=== PATIENT | male | born 1950 | race Caucasian/White ===

== ENCOUNTER 2016-05-14 07:17 | Day surgery (SDC) | payer OTHER ==
[~2016-05-14] VITALS: Ht 177.8 cm; Wt 83.5 kg
[~2016-05-14 07:17] MED LIST: 0.9% Sodium Chloride 1,000 ML IV SCH; KEN25CR EXT; LISI10TA PO; NIAC500T21 PO; PRAV40TA PO; PSYL1000 MC; RED30POW MC; SAW/1TAB2 PO; SERT50TA9 PO; Sodium Chloride LOK Flush 10 mL Syringe IV PRN; UBID200C31 PO; VITA1TAB47 PO; fentaNYL-PF 50 mCg/mL 2 mL Inj IVPUSH PRN
[2016-05-14 07:35] VITALS: BP 127/81; PULSE 65; RESP 12; O2SAT 95
[2016-05-14 08:34] VITALS: BP 107/67; PULSE 57; O2SAT 93
[2016-05-14 08:44] VITALS: BP 113/64; PULSE 57; O2SAT 95
[2016-05-14 08:55] VITALS: BP 120/69; PULSE 66; O2SAT 96
--- NOTE | 2016-05-14 09:18 | ENDO ---
[address] [address] ENDOSCOPY PROCEDURE PATIENT: SAGAR LE V : 1950 MR#: [id number] ADMIT: 05/14/2016 JOB ID: [id number] DATE OF SERVICE: 05/14/2016 PRIMARY PROVIDER: Amilcar Murray MD. PROCEDURE: Colonoscopy with cold snare polypectomies. INDICATIONS: A 65-year-old male with a personal history of adenomatous colon polyps, returned for surveillance. EQUIPMENT: [id number]. SEDATION: 1. Versed 3 mg. 2. Fentanyl 75 mcg. COMPLICATIONS: None identified. BOWEL PREPARATION: Fair, adequate exam. PROCEDURE INFORMATION: After the risks and benefits were explained, written and verbal informed consent was obtained. The patient was brought into the endoscopy suite and placed into the left lateral decubitus position. Sedation was achieved using the above-stated medications with the addition of oxygen via nasal cannula. A digital rectal examination was accomplished and no significant pathology appreciated. The scope was introduced into the rectum and advanced to the cecum as identified by the appendiceal orifice and ileocecal valve. The scope was slowly withdrawn to carefully examine the mucosa for any defects or lesions. Multiple direct views were made through the dentate line for exclusion of pathology. The colon was decompressed. The scope removed from the patient who tolerated the procedure well. FINDINGS: There were five polyps seen and removed today by way of cold snare. These ranged in size from 4-6 maybe 7 mm. No other significant pathology was appreciated throughout. There were no apparent hemorrhagic complications. ENDOSCOPIC DIAGNOSIS: Multiple colon polyps. RECOMMENDATIONS: 1. Await histopathology. 2. Repeat colonoscopy in three years' time. The patient would be encouraged to have his computer programmer available for his deep brain stimulator to turn it off in the future in the event that we require cautery.
--- NOTE | 2016-05-15 14:07 | PATH ---
SURGICAL PATHOLOGY Attending Physician:Vicente Zaidi CASE STATUS: Signed Out PATIENT NAME: SAGAR LE V. PID: [id number] : 1950 DATE COLLECTED:05/14/2016 16:21 SPECIMEN: Colon, Biopsy CLINICAL HISTORY: 1).COLON POLYPS X5 FINAL DIAGNOSIS: 1.COLON POLYPS: SESSILE SERRATED ADENOMA INVOLVING TWO BIOPSY FRAGMENTS. TUBULAR ADENOMA INVOLVING MULTIPLE BIOPSY FRAGMENTS. ICD10 CODE D12.6 GROSS DESCRIPTION: The specimen is received in one formalin filled container labeled with the patient's name, sublabeled "colon polyps" and consists of multiple portions of tissue which aggregate to 0.6 x 0.4 x 0.3 CM. The specimens is entirely submitted in one cassette. 05/14/2016 [facility] MICRO DESCRIPTION: See diagnosis. ICD-9 CODES: CPT CODES: 1: 76778 Electronically Signed Out Pradip Davenport MD [facility] Pathology [facility] [address] [place] [address] Technical component performed at [facility], [facility] [address], [place], [address]
== END 2016-05-14 23:59 | disposition home or self-care (01) ==
LOC: END 07:17
PROVIDERS: ATTEND Internal Medicine Gastroenterology
DX: Z12.11 Encounter for screening for malignant neoplasm of colon (principal); Z86.010 Personal history of colon polyps; D12.2 Benign neoplasm of ascending colon; I10 Essential (primary) hypertension; G25.0 Essential tremor; Z96.89 Presence of other specified functional implants
CPT/HCPCS: 45385; 99153; G0500; J2250; J3010; J7030